=== PATIENT | male | born 1955 | race Caucasian/White ===

== ENCOUNTER 2025-09-06 07:57 | Outpatient (CLI) | payer MEDICARE | END 2025-09-06 07:58 | disposition home or self-care (01) | LOC: CSHCP 07:57 | PROVIDERS: ATTEND Nurse Practitioner Family | DX: R06.02 Shortness of breath (principal); J44.9 Chronic obstructive pulmonary disease, unspecified | CPT/HCPCS: 94060; 94664; 94729; 94760 ==